=== PATIENT | male | born 1990 | race Caucasian/White ===

== ENCOUNTER 2018-06-01 04:15 | Emergency (ER) | payer SELFPAY ==
[2018-06-01 04:24] VITALS: BP 144/102
[2018-06-01] MEDS ORDERED: Sodium Chloride 0.9% 1,000 ML IV ONE (04:42)
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
== END 2018-06-01 05:05 | disposition left against medical advice (07) ==
LOC: DL.ED 04:15
DX: F10.10 Alcohol abuse, uncomplicated (principal); F17.210 Nicotine dependence, cigarettes, uncomplicated; I10 Essential (primary) hypertension; F41.9 Anxiety disorder, unspecified; F32.9 Major depressive disorder, single episode, unspecified; Z79.899 Other long term (current) drug therapy; Z88.0 Allergy status to penicillin
CPT/HCPCS: 99284

== ENCOUNTER 2018-06-12 04:04 | Emergency (ER) | payer SELFPAY ==
[2018-06-12] MEDS ORDERED: Sodium Chloride 0.9% 10 ML Syringe FLUSH PRN (04:14)
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
[2018-06-12] MEDS ORDERED: HYDROmorphone 1 MG/ML Syringe IVPUSH ONE ×2 (04:19→06:46)
[2018-06-12] MEDS ORDERED: Ondansetron 4 MG/2 ML SDV IV ONE ×2 (04:19→06:46)
[2018-06-12] MEDS ORDERED: Sodium Chloride 0.9% 1,000 ML IV ONE ×2 (04:19→04:52)
[2018-06-12 04:47] LABS: ANION GAP 13.4; CHLORIDE,CL 107 mmol/L (101-111); SODIUM,NA 140 mmol/L (135-145)
[2018-06-12] MEDS ORDERED: Iopamidol 612 MG/ML 75 ML Bottle IVPUSH ONE (05:48)
[2018-06-12 06:58] VITALS: BP 131/81
== END 2018-06-12 08:14 ==
LOC: DL.ED 04:04
DX: K81.9 Cholecystitis, unspecified (principal); I10 Essential (primary) hypertension; F41.9 Anxiety disorder, unspecified; F32.9 Major depressive disorder, single episode, unspecified; Z88.0 Allergy status to penicillin; Z79.899 Other long term (current) drug therapy
CPT/HCPCS: 36415; 74177; 80053; 80305; 81003; 82150; 83605; 83690; 85025; 87040; 96361; 96374; 96375; 96376; 99285; G0480; J1170; J2405; J7030; Q9967

== ENCOUNTER 2018-08-03 14:07 | Emergency (ER) | payer MEDICAID, OTHER ==
[2018-08-03 14:42] VITALS: BP 124/67
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
== END 2018-08-03 15:30 | disposition home or self-care (01) ==
LOC: DL.ED 14:07
DX: S63.91XA Sprain of unspecified part of right wrist and hand, initial encounter (principal); I10 Essential (primary) hypertension; F41.9 Anxiety disorder, unspecified; F32.9 Major depressive disorder, single episode, unspecified; F17.210 Nicotine dependence, cigarettes, uncomplicated; W22.01XA Walked into wall, initial encounter; Z88.0 Allergy status to penicillin; Z79.899 Other long term (current) drug therapy
CPT/HCPCS: 73130-RT; 99283-25

== ENCOUNTER 2018-08-08 13:38 | Emergency (ER) | payer MEDICAID, OTHER ==
[2018-08-08] MEDS ORDERED: Metoclopramide 10 MG/2 ML SDV IVPUSH ONE (13:49)
[2018-08-08] MEDS ORDERED: Lactated Ringers 1,000 ML IV ONE (13:49)
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
[2018-08-08 14:24] LABS: ANION GAP 14.2; CHLORIDE,CL 104 mmol/L (101-111); SODIUM,NA 136 mmol/L (135-145)
[2018-08-08] MEDS ORDERED: Acetaminophen/oxyCODONE 325-5 MG Tab PO ONE (15:06)
[2018-08-08 15:19] VITALS: BP 157/88; PULSE 87
== END 2018-08-08 15:43 | disposition home or self-care (01) ==
LOC: DL.ED 13:38
DX: R10.11 Right upper quadrant pain (principal); I10 Essential (primary) hypertension; Z98.890 Other specified postprocedural states; Z79.899 Other long term (current) drug therapy; Z88.0 Allergy status to penicillin
CPT/HCPCS: 36415; 80053; 80305; 81001; 82150; 83690; 85025; 96365; 96375; 99284; A9270; J2765; J7120

== ENCOUNTER 2019-03-31 22:34 | Emergency (ER) | payer MEDICAID, OTHER ==
[2019-03-31 22:40] VITALS: BP 159/91; PULSE 84
[2019-03-31] MEDS ORDERED: Ondansetron 4 MG/2 ML SDV IVPUSH ONE (22:54)
[2019-03-31] MEDS ORDERED: Sodium Chloride 0.9% 1,000 ML IV ONE (22:54)
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
[2019-03-31 23:27] LABS: ANION GAP 12.9; CHLORIDE,CL 103 mmol/L (101-111); SODIUM,NA 136 mmol/L (135-145)
[2019-03-31] MEDS ORDERED: Iopamidol 612 MG/ML 100 ML Bottle IVPUSH ONE (23:34)
[2019-04-01] MEDS ORDERED: Acetaminophen/oxyCODONE 325-5 MG Tab PO ONE (00:34)
== END 2019-04-01 00:43 | disposition home or self-care (01) ==
LOC: DL.ED 22:34
DX: R10.11 Right upper quadrant pain (principal)
CPT/HCPCS: 36415; 74177; 80053; 80305; 81003; 82150; 83690; 85025; A9270; J2405; J7030; Q9967

== ENCOUNTER 2019-05-17 14:13 | Emergency (ER) | payer MEDICAID ==
[2019-05-17 15:12] LABS: CHLORIDE,CL 101 mmol/L (101-111); SODIUM,NA 134 mmol/L (135-145)
[2019-05-17 15:34] VITALS: BP 142/60; PULSE 18
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
== END 2019-05-17 16:10 | disposition home or self-care (01) ==
LOC: DL.ED 14:13
DX: G43.109 Migraine with aura, not intractable, without status migrainosus (principal); I10 Essential (primary) hypertension; F32.9 Major depressive disorder, single episode, unspecified; Z88.0 Allergy status to penicillin; Z79.899 Other long term (current) drug therapy
CPT/HCPCS: 36415; 70450; 80053; 80305-QW; 80307; 85025; 99284-25

== ENCOUNTER 2020-07-30 22:55 | Emergency (ER) | payer MEDICAID ==
[2020-07-30] MEDS ORDERED: Ketorolac 30 MG/ML SDV IVPUSH ONE (23:19)
[2020-07-30] MEDS ORDERED: Sodium Chloride 0.9% 1,000 ML IV ONE (23:19)
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
[2020-07-30 23:27] VITALS: BP 140/86; PULSE 86
[2020-07-30 23:51] LABS: ANION GAP 12.5 mEq/L (7-13); CHLORIDE,CL 103 mmol/L (98-107); SODIUM,NA 139 mmol/L (136-145)
--- NOTE | 2020-07-31 00:23 | CT ---
PROCEDURE INFORMATION: Exam: CT Abdomen And Pelvis Without Contrast Exam date and time: 07/30/2020 11:55 PM Age: 29 years old Clinical indication: Other: Low abd pain--right > left; Additional info: Kidney stones TECHNIQUE: Imaging protocol: Computed tomography of the abdomen and pelvis without contrast. Total images: 429 Radiation optimization: All CT scans at this facility use at least one of these dose optimization techniques: automated exposure control; mA and/or kV adjustment per patient size (includes targeted exams where dose is matched to clinical indication); or iterative reconstruction. COMPARISON: CT Abdomen Pelvis w Cont 03/31/2019 11:58 PM FINDINGS: Lungs: Visualized lung bases are clear. Heart: Heart size normal. Mediastinal space: The visualized distal esophagus is normal. Liver: Normal contour. No mass lesions. No intrahepatic biliary ductal dilatation. Gallbladder and bile ducts: The gallbladder appears partially contracted, which may be responsible for the slightly thick-walled appearance. No adjacent inflammatory stranding. Consider sonographic assessment if there is clinical suspicion for cholecystitis. Nondilated bile ducts. Pancreas: Mild stranding along the inferior margin of the pancreas near the SMA/SMV, possibly mild pancreatitis. No pancreatic ductal dilatation. No focal pancreatic lesions are evident. Spleen: Normal. No splenomegaly. Adrenal glands: Normal. No adrenal mass. Kidneys and ureters: No acute abnormalities. No hydronephrosis or hydroureter. No urinary tract stones are identified. 10 mm indeterminate low-density lesion measuring 15 Hounsfield units in the medial upper pole cortex of the right kidney could represent a cyst. This could be confirmed with greater specificity with ultrasound or postcontrast imaging. Stomach and bowel: The stomach is unremarkable. Moderate fluid distension of the mid and distal small bowel segments without transition point to suggest obstruction. There is also moderate fluid content in the proximal colon. These findings are suggestive of mild gastroenteritis/enterocolitis and diarrheal state. Appendix: The appendix is normal in caliber and demonstrates no evidence of appendicitis. Intraperitoneal space: No free fluid or air. Vasculature: No acute process. No abdominal aortic aneurysm. Lymph nodes: No adenopathy. Urinary bladder: The urinary bladder is largely contracted which is probably responsible for its slightly thick-walled appearance. Correlate with UA for evidence of cystitis. Reproductive: Unremarkable as visualized. Bones/joints: No acute osseous abnormalities. Chronic 5 mm subcortical cyst in the right L5 superior articular process is unchanged. Mild chronic Schmorl's node formation in the superior endplate of L2 unchanged. Soft tissues: Subcutaneous stranding/nodularity in the lower abdomen bilaterally probably represents injection related changes. IMPRESSION: 1. No urolithiasis or hydronephrosis. 2. Mild generalized gastroenteritis/enterocolitis and diarrheal state, versus ileus. No gross obstruction. No perforation or abscess. 3. Question mild urinary bladder wall thickening although this may relate to its partially contracted status. Correlate with UA for evidence of cystitis. 4. Additional non-emergent findings detailed above. COMMENTS: Consistent with the [employer]'s Incidental Findings Committee white paper (J Am Raudel Radiol 2018): Any incidental renal lesion less than 1 cm or classified as too small to characterize, or any incidental cystic renal lesion characterized as simple-appearing, is likely benign. No follow-up imaging is recommended for these lesions per consensus recommendations based on imaging criteria.
== END 2020-07-31 01:15 | disposition home or self-care (01) ==
LOC: DL.ED 22:55
DX: R10.31 Right lower quadrant pain (principal); I10 Essential (primary) hypertension; Z88.0 Allergy status to penicillin
CPT/HCPCS: 36415; 74176; 80053; 80305-QW; 81003; 85025; 96374; 99283; 99284-25; J1885; J7030

== ENCOUNTER 2021-10-13 00:37 | Emergency (ER) | payer MEDICAID ==
[~2021-10-13 00:37] MED LIST: Ketorolac 30 MG/ML SDV IVPUSH ONE; Ondansetron 4 MG/2 ML SDV IVPUSH ONE; Sodium Chloride 0.9% 1,000 ML IV ONE
[2021-10-13 00:42] LABS: ANION GAP 12.1 mEq/L (7-13); CHLORIDE,CL 101 mmol/L (98-107); SODIUM,NA 140 mmol/L (136-145)
[2021-10-13] MEDS ORDERED: Iopamidol 612 MG/ML 100 ML Bottle IVPUSH ONE (00:53)
[2021-10-13] MEDS ORDERED: fentaNYL 100 MCG/2 ML SDV IVPUSH ONE ×2 (00:53→01:14)
[2021-10-13 00:54] LABS: AMPHETAMINES,URINE NEGATIVE (NEGATIVE); BARBITURATES,URINE NEGATIVE (NEGATIVE); BENZODIAZEPINE,URINE NEGATIVE (NEGATIVE); MDMA (ECSTASY), URINE NEGATIVE (NEGATIVE); METHADONE,URINE NEGATIVE (NEGATIVE); METHAMPHETAMINES,URINE POSITIVE (NEGATIVE); OPIATES,URINE NEGATIVE (NEGATIVE); OXYCODONE,URINE NEGATIVE (NEGATIVE); PHENCYCLIDINE,URINE NEGATIVE (NEGATIVE); TCA,URINE NEGATIVE (NEGATIVE)
[2021-10-13 00:56] LABS: ESTIMATED GFR 90 mL/min (>=60)
[2021-10-13] MEDS ORDERED: Famotidine 20 MG/2 ML SDV IVPUSH ONE (01:15)
[2021-10-13] MEDS ORDERED: LORazepam 2 MG/ML SDV IVPUSH ONE (01:59)
[2021-10-13 02:11] VITALS: BP 165/99; PULSE 70
== END 2021-10-13 04:11 | disposition home or self-care (01) ==
LOC: DL.ED 00:37
DX: R10.13 Epigastric pain (principal); F15.10 Other stimulant abuse, uncomplicated; I10 Essential (primary) hypertension; F17.210 Nicotine dependence, cigarettes, uncomplicated; Z88.0 Allergy status to penicillin; Z79.899 Other long term (current) drug therapy
CPT/HCPCS: 36415; 74177; 80053; 80305; 81003; 82150; 83690; 85025; 96361; 96374; 96375; 96376; 99284; J1885; J2060; J2405; J3010; J3490; J7030; Q9967

== ENCOUNTER 2021-11-20 17:48 | Emergency (ER) | payer OTHER, MEDICAID ==
[2021-11-20 18:07] VITALS: BP 153/106; PULSE 86
[2021-11-20] MEDS ORDERED: Mupirocin Oint 22 GM Tube TOP ONE (18:31)
== END 2021-11-20 18:45 | disposition home or self-care (01) ==
LOC: DL.ED 17:48
DX: S30.811A Abrasion of abdominal wall, initial encounter (principal); I10 Essential (primary) hypertension; Z88.0 Allergy status to penicillin; Z79.899 Other long term (current) drug therapy; V29.9XXA Motorcycle rider (driver) (passenger) injured in unspecified traffic accident, initial encounter; Y92.410 Unspecified street and highway as the place of occurrence of the external cause
CPT/HCPCS: 70450; 99284; A9270-GY

== ENCOUNTER 2022-10-02 00:37 | Emergency (ER) | payer MEDICAID ==
[2022-10-02] MEDS ORDERED: HYDROmorphone 1 MG/ML Syringe IVPUSH ONE ×3 (00:47→03:05)
[2022-10-02] MEDS ORDERED: Sodium Chloride 0.9% 10 ML Syringe FLUSH PRN (00:48)
[2022-10-02] MEDS ORDERED: Promethazine 25 MG/ML SDV IM ONE ×2 (00:52→03:05)
[2022-10-02] MEDS ORDERED: Sodium Chloride 0.9% 1,000 ML IV ONE ×2 (00:53→00:54)
[2022-10-02] MEDS ORDERED: Iopamidol 612 MG/ML 100 ML Bottle IVPUSH ONE (00:57)
[2022-10-02 01:13] LABS: BASOPHILS PERCENT AUTO 0.5 % (0.0-1.0); EOSINOPHILS PERCENT AUTO 2.1 % (1.0-3.0); HEMATOCRIT 40.4 % (40.0-54.0); LYMPHOCYTES PERCENT AUTO 39.2 % (20.5-50.1); MEAN CORPUSCULAR HEMOGLOBIN 30.4 pg (27.0-34.0); MEAN CORPUSCULAR HGB CONC 34.7 g/dL (33.0-35.0); MEAN CORPUSCULAR VOLUME 87.6 fL (80-100); MONOCYTES PERCENT AUTO 7.6 % (2-8); NEUTROPHILS PERCENT AUTO 50.6 % (42.2-75.2); PLATELET COUNT,PLT 227 10^3/uL (150-450); RED BLOOD CELL COUNT 4.61 10^6/uL (4.6-6.2); WHITE BLOOD CELL COUNT,WBC 8.5 10^3/uL (5.0-10.0)
[2022-10-02] MEDS ORDERED: Ondansetron 8 MG in Sodium Chloride 0.9% 50 ML IV ONE (01:52)
[2022-10-02 01:54] LABS: A/G RATIO 1.1; ANION GAP 11.7 mEq/L (7-13); BILIRUBIN TOTAL 0.3 mg/dL (0.2-1.0); BUN/CREATININE RATIO 12.9 (No establ ref range); CALCIUM 8.5 mg/dL (8.5-10.1); CREATININE 1.24 mg/dL (0.70-1.30); EST CRCL DRUG DOSING (CG) 90.25 mL/min; POTASSIUM,K 3.7 mmol/L (3.5-5.1); PROTEIN TOTAL,TP 7.5 g/dL (6.4-8.2)
[2022-10-02 02:35] LABS: APPEARANCE,URINE CLEAR (CLEAR); BILIRUBIN,URINE NEGATIVE (NEGATIVE); COLOR,URINE YELLOW (YELLOW); GLUCOSE,URINE NEGATIVE (NEGATIVE); KETONES,URINE NEGATIVE (NEGATIVE); LEUKOCYTE ESTERASE,URINE NEGATIVE (NEGATIVE); NITRITE,URINE NEGATIVE (NEGATIVE); OCCULT BLOOD,URINE NEGATIVE (NEGATIVE); PH,URINE 7.5 (5.0-9.0); PROTEIN,URINE NEGATIVE (NEGATIVE)
[2022-10-02 02:36] LABS: AMPHETAMINES,URINE NEGATIVE (NEGATIVE); BARBITURATES,URINE NEGATIVE (NEGATIVE); BENZODIAZEPINE,URINE NEGATIVE (NEGATIVE); MDMA (ECSTASY), URINE NEGATIVE (NEGATIVE); METHADONE,URINE NEGATIVE (NEGATIVE); METHAMPHETAMINES,URINE POSITIVE (NEGATIVE); OPIATES,URINE NEGATIVE (NEGATIVE); OXYCODONE,URINE NEGATIVE (NEGATIVE); PHENCYCLIDINE,URINE NEGATIVE (NEGATIVE); TCA,URINE NEGATIVE (NEGATIVE)
[2022-10-02] MEDS ORDERED: Ketorolac 30 MG/ML SDV IVPUSH ONE (03:07)
[2022-10-02 03:41] VITALS: BP 135/99; PULSE 88
== END 2022-10-02 03:55 | disposition home or self-care (01) ==
LOC: DL.ED 00:37
DX: R10.11 Right upper quadrant pain (principal); R11.2 Nausea with vomiting, unspecified; F15.10 Other stimulant abuse, uncomplicated; I10 Essential (primary) hypertension; F17.210 Nicotine dependence, cigarettes, uncomplicated; Z88.0 Allergy status to penicillin; Z79.899 Other long term (current) drug therapy
CPT/HCPCS: 36415; 74177; 80053; 80305; 81003; 83690; 85025; 96361; 96372; 96374; 96375; 96376; 99284; 99285; J1170; J1885; J2405; J2550; J3490; J7030; Q9967

== ENCOUNTER 2022-12-01 14:43 | Emergency (ER) | payer MEDICAID | END 2022-12-01 15:11 | disposition left against medical advice (07) | LOC: DL.ED 14:43 | DX: Z53.21 Procedure and treatment not carried out due to patient leaving prior to being seen by health care provider (principal) ==

== ENCOUNTER 2025-01-29 16:27 | Emergency (ER) | payer MEDICAID ==
[2025-01-29] MEDS ORDERED: Sodium Chloride 0.9% 10 ML Syringe FLUSH PRN (16:30)
[2025-01-29 16:53] LABS: BASOPHILS PERCENT AUTO 0.3 % (0.0-1.0); EOSINOPHILS PERCENT AUTO 1.3 % (1.0-3.0); LYMPHOCYTES PERCENT AUTO 29.6 % (20.5-50.1); MONOCYTES PERCENT AUTO 7.4 % (2-8); NEUTROPHILS PERCENT AUTO 61.4 % (42.2-75.2); PLATELET COUNT,PLT 307 10^3/uL (150-450); RED BLOOD CELL COUNT 5.27 10^6/uL (4.6-6.2); WHITE BLOOD CELL COUNT,WBC 9.8 10^3/uL (5.0-10.0)
[2025-01-29] MEDS: Ondansetron 4 MG/2 ML SDV IVPUSH ONE (17:02)
[2025-01-29 17:16] LABS: A/G RATIO 1.0; ALANINE AMINOTRANSFERASE,ALT 22 U/L (16-63); ASPARTATE AMNIOTRANSFERASE,AST 22 U/L (15-37); BILIRUBIN TOTAL 0.4 mg/dL (0.2-1.0); BLOOD UREA NITROGEN,BUN 10 mg/dL (7-18); CARBON DIOXIDE,CO2 23 mmol/L (21-32); CHLORIDE,CL 103 mmol/L (98-107); CREATININE 0.73 mg/dL (0.70-1.30); EST CRCL DRUG DOSING (CG) 150.43 mL/min; GLUCOSE RANDOM 98 mg/dL (70-99); POTASSIUM,K 4.3 mmol/L (3.5-5.1); PROTEIN TOTAL,TP 8.7 g/dL (6.4-8.2); SODIUM,NA 138 mmol/L (136-145)
[2025-01-29 17:18] LABS: ESTIMATED GFR 122 mL/min (>=60); ETHANOL BLOOD MEDICAL < 3 mg/dL (0)
[2025-01-29 17:19] LABS: LACTIC ACID 1.6 mmol/L (0.4-2.0)
[2025-01-29 17:42] LABS: AMPHETAMINES,URINE NEGATIVE (NEGATIVE); BARBITURATES,URINE NEGATIVE (NEGATIVE); MDMA (ECSTASY), URINE NEGATIVE (NEGATIVE); METHAMPHETAMINES,URINE NEGATIVE (NEGATIVE); OPIATES,URINE NEGATIVE (NEGATIVE); OXYCODONE,URINE NEGATIVE (NEGATIVE); PHENCYCLIDINE,URINE NEGATIVE (NEGATIVE); TCA,URINE NEGATIVE (NEGATIVE)
[2025-01-29 19:09] VITALS: BP 163/95; PULSE 74
== END 2025-01-29 18:45 | disposition home or self-care (01) ==
LOC: DL.ED 16:27
DX: K05.10 Chronic gingivitis, plaque induced (principal); F41.9 Anxiety disorder, unspecified; I10 Essential (primary) hypertension; Z88.0 Allergy status to penicillin; Z79.899 Other long term (current) drug therapy
CPT/HCPCS: 36415; 71045; 80053; 80305-QW; 80307; 83605; 84145; 85025; 86140; 87040; 96361; 96374; 99284-25; A9270-GY; J2405; J7030

== ENCOUNTER 2025-01-30 16:06 | Emergency (ER) | payer MEDICAID ==
[2025-01-30] MEDS ORDERED: Sodium Chloride 0.9% 10 ML Syringe FLUSH PRN (16:27)
[2025-01-30 16:50] LABS: BASOPHILS PERCENT AUTO 0.4 % (0.0-1.0); EOSINOPHILS PERCENT AUTO 4.2 % (1.0-3.0); LYMPHOCYTES PERCENT AUTO 38.6 % (20.5-50.1); MONOCYTES PERCENT AUTO 8.0 % (2-8); NEUTROPHILS PERCENT AUTO 48.8 % (42.2-75.2); PLATELET COUNT,PLT 273 10^3/uL (150-450); RED BLOOD CELL COUNT 5.04 10^6/uL (4.6-6.2); WHITE BLOOD CELL COUNT,WBC 8.1 10^3/uL (5.0-10.0)
[2025-01-30 17:07] LABS: INR 0.9 (0.9-1.2); PTT,PARTIAL THROMBOPLSTIN TIME 25.0 SEC (22.0-34.0)
[2025-01-30 17:12] LABS: A/G RATIO 0.9; ALANINE AMINOTRANSFERASE,ALT 21 U/L (16-63); ASPARTATE AMNIOTRANSFERASE,AST 14 U/L (15-37); BILIRUBIN TOTAL 0.3 mg/dL (0.2-1.0); BLOOD UREA NITROGEN,BUN 9 mg/dL (7-18); CARBON DIOXIDE,CO2 23 mmol/L (21-32); CHLORIDE,CL 106 mmol/L (98-107); CREATININE 0.75 mg/dL (0.70-1.30); EST CRCL DRUG DOSING (CG) 146.42 mL/min; GLUCOSE RANDOM 99 mg/dL (70-99); POTASSIUM,K 2.7 mmol/L (3.5-5.1); PROTEIN TOTAL,TP 8.1 g/dL (6.4-8.2); SODIUM,NA 143 mmol/L (136-145)
[2025-01-30 17:13] LABS: ESTIMATED GFR 121 mL/min (>=60)
[2025-01-30] MEDS: fentaNYL 100 MCG/2 ML SDV IVPUSH ONE (17:20)
[2025-01-30] MEDS: Ondansetron 4 MG/2 ML SDV IVPUSH ONE (17:20)
[2025-01-30] MEDS: Iopamidol 612 MG/ML 100 ML Bottle IVPUSH ONE (17:36)
[2025-01-30] MEDS: NS with KCl 40mEq 1,000 ML IV SCH (17:54)
[2025-01-30 18:27] LABS: APPEARANCE,URINE CLEAR (CLEAR); GLUCOSE,URINE NEGATIVE (NEGATIVE); OCCULT BLOOD,URINE NEGATIVE (NEGATIVE)
[2025-01-30] MEDS: Potassium Chloride 10 MEQ Tab.ER PO ONE (18:51)
[2025-01-30 22:04] VITALS: BP 113/87; PULSE 78
== END 2025-01-30 21:54 | disposition home or self-care (01) ==
LOC: DL.ED 16:06
DX: R10.31 Right lower quadrant pain (principal); E87.6 Hypokalemia; R19.5 Other fecal abnormalities; I10 Essential (primary) hypertension; Z88.0 Allergy status to penicillin; Z79.899 Other long term (current) drug therapy
CPT/HCPCS: 36415; 74177; 80053; 81003; 83690; 83735; 84145; 84484; 85025; 85610; 85730; 86140; 87040; 96365; 96366; 96372; 96375; 99284; A9270; J1630; J2405; J3010; J3480; Q9967